=== PATIENT | female | born 1965 | race Caucasian/White ===

== ENCOUNTER → 2019-03-26 | Outpatient (CLI) | payer OTHER, MEDICARE ==
[~2019-03-26] VITALS: Ht 165.1 cm; Wt 142.0 kg
[~2019-03-26] MED LIST: ACETAMINOPHEN325 M1 PO; ADVAIR 250-501 EACH INH; ALLOPURINOL 30300 M1 PO; AUGMENTIN 875875 MG PO; BACTRIM DS TAB1 EACH PO; BENTYL 20 MG TA20 M1 PO; CEFUROXIME500 MG PO; CENTRUM ULTRA1 EACH PO; CIPROFLOXACIN500 M1 PO; CLONAZEPAM 1 MG1 M1 PO; CRESTOR20 MG PO; FERAHEME510 MG/17 IV; FISH OIL 1,001000 M2 PO; HUMALOG100 UNIT/1 SUBQ; HUMULINU500 SQ; HYDROCHLOROTHIA25 M1 PO; IMODIUM MULTI-1 EACH PO; JANUMET 50-1,01 EACH PO; KEFLEX500 MG PO; LANTUS SUBQ; LISINOPRIL10 MG PO; METFORMIN HCL500 MG PO; NORWEGIAN COD1 EACH PO; NOVOLIN R100 UNIT/1 INJECTION; NOVOLOG100 UNIT/1 SUBQ; OLIVE LEAF EXT250 MG PO; ONDANSETRON HCL4 M2 PO; PANTOPRAZOLE SO40 M1 PO; PERCOCET 7.5-31 EACH PO; SERTRALINE HCL50 MG PO; SIMVASTATIN40 MG PO; ULTRAM 50MG TAB50 MG PO; VITAMIN B-12100 MC1 PO; WELCHOL 625 MG625 M1 PO; XANAX 0.5 MG0.5 MG PO; XOPENEX1.25 MG/3 IH; ZETIA10 MG PO; ZOLOFT100 MG PO; ZYRTEC10 M5 PO
[2019-03-26 10:33] VITALS: BP 138/80
[2019-03-26 10:57] LABS: HEMATOCRIT 36.6 % (37.0-47.0); HEMOGLOBIN 12.3 gm/dL (12.0-15.0); MCH 29.8 pg (26.0-34.0); MCHC 33.6 g/dL (28.0-37.0); MCV 88.8 fL (80.0-100.0); MPV 9.3 fl. (7.2-11.1); RBC 4.12 mil/uL (4.20-5.00); RDW-CV 14.5 % (10.5-14.5); WBC 6.8 thou/uL (4.0-11.0)
[2019-03-26 11:03] LABS: ANION GAP 9 mmol/L (7-16); BUN 17 mg/dL (7-18); CALCIUM 9.3 mg/dL (8.5-10.1); CHLORIDE 104 mmol/L (98-107); CO2 27 mmol/L (21-32); CREATININE 1.1 mg/dL (0.6-1.3); GLUCOSE 153 mg/dL (70-99); POTASSIUM 4.4 mmol/L (3.5-5.1); SERUM ASSESSMENT Clear; SODIUM 140 mmol/L (136-145)
[2019-03-26 11:04] LABS: APTT 27.1 Seconds (25.0-31.3); INR 1.1; PROTIME 10.8 Seconds (9.20-11.50)
[2019-03-26 11:08] LABS: CHOLESTEROL 125 mg/dL (<200); HDL CHOLESTEROL 37 mg/dL (>40); LDL CHOLESTEROL 34 mg/dL (<100); TC:HDL 3.4 Ratio (Not establshd); TRIGLYCERIDE 271 mg/dL (<150); VLDL 54 mg/dL (<40)
[2019-03-26 14:09] VITALS: BP 91/34
--- NOTE | 2019-03-26 14:30 | EKG ---
[place] [address] ELECTROCARDIOGRAM REPORT Name: TYRONEMANDO OROZCO Room: [facility]#: [id number] Admission: 03/26/19 Attend Phys: Tejas Bran MD Discharge: Date of : 67 Report #: [id number] THIS REPORT FOR: //name// [facility] Test Date: 2019-03-26 Test Time: 11:16:15 Pat Name: MANDO HANSEN Department: Room: Gender: F Blockmason: : 1965 Requested By: Tejas Bran Order Number: [id number] Reading MD: Tejas Bran Measurements Intervals [place] Rate: 79 P: 10 WA: 136 QRS: -22 QRSD: 99 T: 14 QT: 387 QTc: 444 Interpretive Statements Sinus rhythm Borderline left axis deviation Low voltage, precordial leads No previous ECG available for comparison Electronically Signed On 03-26-2019 14:30:07 CDT by Tejas Bran [email or web address] <ELECTRONICALLY SIGNED> By: Tejas Bran MD, [facility] 03/26/19 1430 1116 [id number] Tejas Bran MD, FAC /EPI
[2019-03-26 14:32] VITALS: BP 101/56
[2019-03-26 15:17] VITALS: BP 115/61
--- NOTE | 2019-03-28 17:31 | CARD ---
[address] [address] CARDIAC CATH REPORT Name: MANDO HANSEN Room: [facility] JYOTI Webber#: [id number] Admission: 03/26/19 Attend Phys: Tejas Bran MD Discharge: Date of : 67 Report #: [id number] THIS REPORT FOR: //name// APPROVED REPORT Study performed: 03/26/2019 12:20:02 Patient Details Patient Status: Out-Patient Room #: The patient is a 53 year-old female Event Personnel Tejas Bran Protective Signal Repairer Helper, Barbara Reyes RN Systems Integration Advisor, Maribell Urias RN Monitor, Garrett Gardner PROFESSIONAL [employer] Scrub Procedures Performed Left Heart Cath w/or w/o Coronaries Procedure Narrative A Slender Glidesheath sheath was inserted into the right radial artery. Coronary angiography was performed using coronary diagnostic catheters. The right coronary system was accessed and visualized with a Diagnostic AR Mod 6fr catheter. The left coronary system was accessed and visualized with a Diagnostic JL 3.5 5fr catheter. The left ventricle was accessed and visualized with a Diagnostic PC: Angled Pig 5fr catheter. Left ventricular/Aortic Valve gradient assessed via catheter pullback. Closure device was deployed with a Fr Vasc-Band Lng 27cm. The patient tolerated the procedure well and there were no complications associated with the procedure. Intraoperative Conscious Sedation Sedation start time: 13:02 Case end Time: 13:38 Versed 2 mg Fluoro Time: 17.8 minutes Dose: DAP [id number] cGycm2 3155 mGy Contrast Type and Amount: Omnipaque 175 ml Diagnostic Cath Left Main normal LAD normal mid to distal vessel is medium sized, mild 20% distally Diagonal 1 large ,normal Circumflex large vessel proximally, [place] [address] CARDIAC CATH REPORT Name: AMNDO HANSEN FEBRUARY Room: [facility]#: [id number] Admission: 03/26/19 Attend Phys: Tejas Bran MD Discharge: Date of : 67 Report #: [id number] small acute marginal branch, normal OM1 large normal OM2 large branching normal L PDA normal Right Coronary small nondominant normal, visualiized with Aortic root injection Left Ventriculography Left Ventriculography was not performed. Ejection Fraction was >55% based off patient's Nuclear Cardiac Stress Test. root aortagram, no aneurysm, no AI, small RCA is nondominant Hemodynamics The aortic pressure is 121/83 mmHg with a mean of 95 mmHg. The left ventricular pressure is 121/9 mmHg with a mean of mmHg. The left ventricular end diastolic pressure is 14 mmHg. Conclusion 1. Mild CAD 2. normal LV systolic function Recommendations Aggressive Medical Therapy <ELECTRONICALLY SIGNED> By: Tejas Bran MD, [facility] 03/28/191730 30 30Tejas Bran MD, [facility] /INF
== END | disposition home or self-care (01) ==
LOC: M.CL 10:19
PROVIDERS: Internal Medicine Cardiovascular Disease
DX: I25.10 Atherosclerotic heart disease of native coronary artery without angina pectoris (principal); E78.5 Hyperlipidemia, unspecified; E11.9 Type 2 diabetes mellitus without complications; K21.9 Gastro-esophageal reflux disease without esophagitis; Z87.19 Personal history of other diseases of the digestive system; Z87.442 Personal history of urinary calculi; Z90.711 Acquired absence of uterus with remaining cervical stump; Z98.890 Other specified postprocedural states; Z79.899 Other long term (current) drug therapy; Z88.2 Allergy status to sulfonamides; Z91.040 Latex allergy status; Z88.8 Allergy status to other drugs, medicaments and biological substances; Z79.01 Long term (current) use of anticoagulants